=== PATIENT | female | born 1950 | race Caucasian/White ===

== ENCOUNTER 2017-06-02 14:50 | Emergency (ER) | payer BC ==
[2017-06-02 15:20] VITALS: BP 135/70
--- NOTE | 2017-06-02 16:05 | EDM.PDOC ---
ED HPI GENERAL MEDICAL PROBLEM - General Chief Complaint: General Stated Complaint: FALL MULTIPLE INJURIES Time Seen by Provider: 06/02/17 15:24 Source of Information: Reports: Patient History Limitations: Reports: No Limitations - History of Present Illness INITIAL COMMENTS - FREE TEXT/NARRATIVE: The patient is a 66-year-old female with a chief complaint of right shoulder and bilateral knee pain after a fall. The patient was at [facility]. She slipped on something while she was holding onto the cart and fell to the ground. She fell onto her left knee. Her right knee twisted. She also injured her shoulder. She was able to get up. She is able to bear weight but with significant pain. She has pain in her right neck area, right shoulder, and bilateral knees. Denies head injury. No loss of consciousness. No back pain, chest pain, or abdominal pain. Unable to take pain medication due to many allergies. Knee Pain Score (Numeric/FACES): 4 - Related Data Allergies Allergy/AdvReac Type Severity Reaction Status Date / Time acetaminophen [From Percocet] Allergy Hives Verified 06/02/17 15:25 adhesive Allergy Hives Verified 06/02/17 15:25 aspirin Allergy Blurred Verified 06/02/17 15:25 Vision azithromycin [From Zithromax] Allergy Hives Verified 06/02/17 15:25 cayenne Allergy Hives Verified 06/02/17 15:25 cefazolin Allergy Hives Verified 06/02/17 15:25 chlorhexidine Allergy Hives Verified 06/02/17 15:25 [place] And Derivatives Allergy Hives Verified 06/02/17 15:25 dibucaine Allergy Hives Verified 06/02/17 15:25 erythromycin base Allergy Hives Verified 06/02/17 15:25 esomeprazole [From Nexium] Allergy Hives Verified 06/02/17 15:25 hydrocodone Allergy Itching Verified 06/02/17 15:25 Influenza Virus Vaccines Allergy Anaphylactic Verified 06/02/17 15:25 Shock levofloxacin [From Levaquin] Allergy Blurred Verified 06/02/17 15:25 Vision lorazepam [From Ativan] Allergy Hives Verified 06/02/17 15:25 NSAIDS (Non-Steroidal Allergy Hives Verified 06/02/17 15:25 Anti-Inflamma omeprazole Allergy Hives Verified 06/02/17 15:25 oxycodone [From Percocet] Allergy Hives Verified 06/02/17 15:25 pantoprazole [From Protonix] Allergy Hives Verified 06/02/17 15:25 Penicillins Allergy Hives Verified 06/02/17 15:25 ranitidine [From Zantac] Allergy Hives Verified 06/02/17 15:25 Sulfa (Sulfonamide Allergy Hives Verified 06/02/17 15:25 Antibiotics) Tetanus Vaccines and Toxoid Allergy Anaphylactic Verified 06/02/17 15:25 Shock Home Meds: Home Meds . [No Known Home Meds] 06/02/17 [History] Past Medical History - Past Surgical History Female Surgical History: Reports: Hysterectomy Musculoskeletal Surgical History: Reports: Hip Replacement, Shoulder Surgery, Other (See Below) Other Musculoskeletal Surgeries/Procedures:: torn meniscus both knees Social & Family History - Tobacco Use Smoking Status *Q: Never Smoker - Caffeine Use Caffeine Use: Reports: None - Recreational Drug Use Recreational Drug Use: No ED ROS GENERAL - Review of Systems Review Of Systems: See Below Constitutional: Reports: No Symptoms Cardiovascular: Denies: Chest Pain GI/Abdominal: Denies: Abdominal Pain Musculoskeletal: Reports: Neck Pain, Shoulder Pain, Leg Pain Neurological: Denies: Tingling ED EXAM, GENERAL - Physical Exam Exam: See Below Exam Limited By: No Limitations General Appearance: Alert, WD/WN, No Apparent Distress Eye Exam: Bilateral Eye: Normal Inspection Ears: Normal External Exam Nose: Normal Inspection Throat/Mouth: Normal Inspection, Normal Oropharynx Head: Atraumatic, Normocephalic Neck: Normal Inspection, Supple, Full Range of Motion, Other (R lateral trapezius area TTP). No: Tender Midline Respiratory/Chest: No Respiratory Distress, Lungs Clear, Normal Breath Sounds, Chest Non-Tender Cardiovascular: Normal Peripheral Pulses GI/Abdominal: Soft, Non-Tender, No Distention. No: Rebound Back Exam: Normal Inspection, Full Range of Motion. No: Vertebral Tenderness Extremities: Other (R shoulder: no deformity, skin intact, + mild TTP of posterior shoulder area, no humerus/elbow TTP, distal motor/sensation/perfusion intact. R knee: no deformity or bruising, skin intact, no effusion, +lateral joint line area TTP, limited ROM due to pain. L knee: small amount anterior bruising, diffuse anterior TTP, skin intact, no effusion, limited ROM due to pain, R and L extremity exams otherwise normal, no hip or ankle TTP) Neurological: Alert, Oriented, Normal Cognition, No Motor/Sensory Deficits Psychiatric: Normal Affect, Normal Mood Skin Exam: Warm, Dry, Intact, Normal Color, No Rash Course - Vital Signs Last Recorded V/S: Last Vital Signs Temp 36.9 C 06/02/17 15:16 Pulse 81 06/02/17 15:16 Resp 16 06/02/17 15:16 BP 135/70 06/02/17 15:16 Pulse Ox 97 06/02/17 15:16 - Orders/Labs/Meds Orders: Active Orders 24 hr Category Date Time Status Knee Min 4V Lt [CR] Stat Exams 06/02/17 15:59 Taken Knee Min 4V Rt [CR] Stat Exams 06/02/17 15:59 Taken Shoulder Comp Rt [CR] Stat Exams 06/02/17 15:59 Taken - Re-Assessments/Exams Free Text/Narrative Re-Assessment/Exam: 06/02/17 16:51 X-rays of the right shoulder and bilateral knees show no bony abnormality. Her shoulder discomfort is consistent with a trapezius strain. Her right knee may also be sprained or may also have internal injury. Her left knee is contused but not fractured. She does not tolerate any pain medications due to extensive allergies. Advised her to treat with ice, rest, elevation, primary care or orthopedics follow-up as needed. Departure - Departure Time of Disposition: 16:52 Disposition: Home, Self-Care 01 Clinical Impression: Fall Qualifiers: Encounter type: initial encounter Qualified Code(s): W19.XXXA - Unspecified fall, initial encounter Trapezius strain Qualifiers: Encounter type: initial encounter Laterality: right Qualified Code(s): S46.811A - Strain of other muscles, fascia and tendons at shoulder and upper arm level, right arm, initial encounter Right knee sprain Qualifiers: Encounter type: initial encounter Involved ligament of knee: unspecified ligament Qualified Code(s): S83.91XA - Sprain of unspecified site of right knee , initial encounter Contusion of left knee Qualifiers: Encounter type: initial encounter Qualified Code(s): S80.02XA - Contusion of left knee, initial encounter - Discharge Information Referrals: PCP,None [Primary Care Provider] - Forms: ED Department Discharge Additional Instructions: 1. Ice areas of pain today and tomorrow 2. Follow up with a primary care doctor or orthopedist in approximately 1 week if not improved - My Orders Last 24 Hours: My Active Orders 06/02/17 15:59 Knee Min 4V Lt [CR] Stat Knee Min 4V Rt [CR] Stat Shoulder Comp Rt [CR] Stat - Assessment/Plan Last 24 Hours: My Active Orders 06/02/17 15:59 Knee Min 4V Lt [CR] Stat Knee Min 4V Rt [CR] Stat Shoulder Comp Rt [CR] Stat
--- NOTE | 2017-06-03 08:10 | CR ---
Left knee: Four views of the left knee were obtained as well as bilateral sunrise patellar view. Comparison: No prior Moderate to severe medial joint space narrowing is seen. Lateral joint space is preserved. Slight osteophytes noted off the medial and lateral joint. There is mild cartilage loss within both patellofemoral joints. Osteophytes are seen within both patellofemoral joints which are worse on the left side. Impression: 1. Degenerative change as described above. 2. Nothing acute is appreciated on left knee exam. Diagnostic code #2
--- NOTE | 2017-06-03 08:10 | CR ---
Right knee: Four views of the right knee were obtained. Comparison: No previous radiographic exam. Moderate to severe medial joint space narrowing is seen. Small osteophytes are noted off the medial joint. Lateral joint space is maintained. Minimal osteophytes are seen off the patella. Mild joint space narrowing is noted within the right patella. No acute fracture or other abnormality is identified. Impression: 1. Degenerative change as noted above. 2. No acute bony abnormality is identified. Diagnostic code #2
--- NOTE | 2017-06-03 08:10 | CR ---
Right shoulder: Three views of the right shoulder were obtained. Comparison: No prior right shoulder study. Degenerative spurring is seen off the inferior humeral head. Mild spurring is noted about the glenoid. Previous shoulder surgery is seen. Surgical anchor is noted within the humeral head as well as slight distal clavicle resection. No acute fracture or other abnormality is appreciated. Impression: 1. Degenerative change within the glenohumeral joint. Previous right shoulder surgery. 2. Nothing acute is appreciated on right shoulder study. Diagnostic code #2
== END 2017-06-02 17:10 | disposition home or self-care (01) ==
LOC: JD.ED 14:50
DX: S46.811A Strain of other muscles, fascia and tendons at shoulder and upper arm level, right arm, initial encounter (principal); S83.91XA Sprain of unspecified site of right knee, initial encounter; S80.02XA Contusion of left knee, initial encounter; Z88.6 Allergy status to analgesic agent; Z88.1 Allergy status to other antibiotic agents; Z88.5 Allergy status to narcotic agent; Z88.8 Allergy status to other drugs, medicaments and biological substances; Z88.2 Allergy status to sulfonamides; W19.XXXA Unspecified fall, initial encounter
CPT/HCPCS: 73030-26-RT; 73030-RT; 73564-26-LT; 73564-26-RT; 73564-LT; 73564-RT; 99284

== ENCOUNTER 2019-07-11 22:11 | Emergency (ER) | payer BC ==
[2019-07-11 22:21] VITALS: BP 176/90; PULSE 78
--- NOTE | 2019-07-11 22:51 | EDM.PDOC ---
ED HPI GENERAL MEDICAL PROBLEM - General Chief Complaint: Head Injury Stated Complaint: FELL AND GASHED NOSE/LIP/TONGUE Time Seen by Provider: 07/11/19 22:24 Source of Information: Reports: Patient, Significant Other (Boyfriend) History Limitations: Reports: No Limitations - History of Present Illness INITIAL COMMENTS - FREE TEXT/NARRATIVE: Ms. Garrett is a pleasant 68-year-old woman with no chronic medical issues, who states that she got out of her boyfriend's pickup, then tripped and fell onto her concrete driveway, striking her face, around 21:50 this evening. She denies LOC. She presents to the ED with abrasions to her nose, swelling of her lower lip, and pain, swelling, and ecchymosis to her left thumb. She is complaining of pain to her chin, but denies any dental injury. She denies pain elsewhere, including to her knees or wrists. The patient smells of alcohol. She states that she had 4 beers tonight. The patient is not on aspirin or an anticoagulant, but she does take fish oil, for reasons she does not know. The patient does not have a PCP. She has not received an influenza vaccine this season, but agreed to receive one tonight. Head Pain Score (Numeric/FACES): 7 - Related Data Allergies Allergy/AdvReac Type Severity Reaction Status Date / Time acetaminophen [From Percocet] Allergy Hives Verified 07/11/19 22:25 adhesive Allergy Hives Verified 07/11/19 22:25 aspirin Allergy Blurred Verified 07/11/19 22:25 Vision azithromycin [From Zithromax] Allergy Hives Verified 07/11/19 22:25 cayenne Allergy Hives Verified 07/11/19 22:25 cefazolin Allergy Hives Verified 07/11/19 22:25 chlorhexidine Allergy Hives Verified 07/11/19 22:25 [place] And Derivatives Allergy Hives Verified 07/11/19 22:25 dibucaine Allergy Hives Verified 07/11/19 22:25 erythromycin base Allergy Hives Verified 07/11/19 22:25 esomeprazole [From Nexium] Allergy Hives Verified 07/11/19 22:25 hydrocodone Allergy Itching Verified 07/11/19 22:25 Influenza Virus Vaccines Allergy Anaphylactic Verified 07/11/19 22:25 Shock levofloxacin [From Levaquin] Allergy Blurred Verified 07/11/19 22:25 Vision lorazepam [From Ativan] Allergy Hives Verified 07/11/19 22:25 NSAIDS (Non-Steroidal Allergy Hives Verified 07/11/19 22:25 Anti-Inflamma omeprazole Allergy Hives Verified 07/11/19 22:25 oxycodone [From Percocet] Allergy Hives Verified 07/11/19 22:25 pantoprazole [From Protonix] Allergy Hives Verified 07/11/19 22:25 Penicillins Allergy Hives Verified 07/11/19 22:25 ranitidine [From Zantac] Allergy Hives Verified 07/11/19 22:25 Sulfa (Sulfonamide Allergy Hives Verified 07/11/19 22:25 Antibiotics) Tetanus Vaccines and Toxoid Allergy Anaphylactic Verified 07/11/19 22:25 Shock Home Meds: Home Meds . [No Known Home Meds] 06/02/17 [History] Past Medical History HEENT History: Reports: Impaired Vision Cardiovascular History: Reports: Hypertension (untreated) [employer]ARD [employer]ATOR History: Reports: Spontaneous Musculoskeletal History: Reports: Other (See Below) (Bilateral knee torn meniscus - no operative repair) Endocrine/Metabolic History: Reports: Obesity/BMI 30+ - Past Surgical History Female Surgical History: Reports: D&C (x 1), Hysterectomy (complete) Musculoskeletal Surgical History: Reports: Hip Replacement (right), Knee Replacement (right), Shoulder Surgery (right, open) Social & Family History - Tobacco Use Smoking Status *Q: Former Smoker Years of Tobacco use: 42 Packs/Tins Daily: 2.5 Month/Year Tobacco Last Used: Quit 2008 - Caffeine Use Caffeine Use: Reports: None - Alcohol Use Alcohol Use History: Yes Alcohol Use Frequency: Socially - Recreational Drug Use Recreational Drug Use: No - Living Situation & Occupation Living situation: Reports: , with Significant Other (Boyfriend) Occupation: Retired ED ROS GENERAL - Review of Systems Review Of Systems: Unable To Obtain ED EXAM, HEAD INJURY - Physical Exam Exam: See Below Exam Limited By: No Limitations General Appearance: Alert, WD/WN, No Apparent Distress Head: Normocephalic, Facial Tenderness (Tenderness to the anterior mandible. The patient denies dental pain or malocclusion when asked to bite down.) Eyes: Bilateral Eye: EOMI, Normal Inspection, PERRL Ears: Normal External Exam, Normal Canal, Hearing Grossly Normal, Normal TMs Nose: Normal Mucousa, Other (There is an abrasion across the middle of the bridge of her nose, as well as to the tip of her nose. No bony tenderness to palpation of the bridge of the nose. No epistaxis either side, and no septal hematoma found.) Throat/Mouth: Normal Teeth, Normal Gums, Normal Oropharynx, Normal Voice, No Airway Compromise, Other (The lower lip is swollen. There is ecchymosis to the inside of the lower lip, but no laceration or blood was found.) Neck: Non-Tender, Full Range of Motion, Normal Alignment, Normal Inspection Respiratory: No Respiratory Distress, Lungs Clear, Normal Breath Sounds, No Accessory Muscle Use Cardiovascular: Normal Peripheral Pulses, Regular Rate, Rhythm, No Edema, No Gallop, No JVD, No Murmur, No Rub GI/Abdominal Exam: Normal Bowel Sounds, Soft, Non-Tender, No Organomegaly, No Distention, No Abnormal Bruit, No Mass (Female) Exam: Deferred Rectal (Female) Exam: Deferred Back Exam: Full Range of Motion, Normal Inspection, NT Extremities: Normal Capillary Refill, Other (There is swelling, ecchymosis, and tenderness to palpation of the proximal phalanx of her left thumb, however, pain is not induced in the thumb with compression, traction, or torsion of the thumb. Neurovascular status of the left thumb is intact.) Neurologic: No Motor/Sensory Deficits, Alert, Oriented x 3 Skin: Normal Color, Warm/Dry Course - Vital Signs Last Recorded V/S: Last Vital Signs Temp 35.9 C 07/11/19 22:17 Pulse 78 07/11/19 22:17 Resp 18 07/11/19 22:17 BP 176/90 H 07/11/19 22:17 Pulse Ox 94 L 07/11/19 22:17 - Orders/Labs/Meds Orders: Active Orders 24 hr Category Date Time Status Influenza Vaccine Charge [RC] .DISCHARGE Care 07/11/19 22:45 Active Fingers Thumb Lt FA [CR] Stat Exams 07/11/19 22:44 Taken Maxillofacial w/o CM [Max Facial Sinus wo Cont] [CT] Exams 07/11/19 22:43 Taken Stat Meds: Medications Discontinued Medications Generic Name Dose Route Start Last Admin Trade Name Robert PRN Reason Stop Dose Admin Influenza Virus Vaccine 1 each 07/11/19 22:45 Pharmacy To Dose - Influenza Vaccine IM 07/11/19 22:46 ONETIME ONE Influenza Virus Vaccine 180 mcg 07/11/19 23:00 07/12/19 00:11 Fluzone High-Dose 2019-20 Syringe IM 07/11/19 23:01 Not Given .ONCE ONE - Re-Assessments/Exams Free Text/Narrative Re-Assessment/Exam: 07/11/19 22:45 The patient has two abrasions to her nose, but there is no nasal bone tenderness , so my suspicion of a fracture there is low. Similarly, while the patient's left thumb proximal phalanx is swollen and ecchymotic, there does not appear to be any bony tenderness, nor pain induced with compression, traction, or torsion of the thumb, so my suspicion of a fracture there is low, as well, however, I have ordered x-rays of the thumb to be sure. I am more concerned about the patient's mandible. She has bony tenderness to palpation, therefore I have ordered a CT maxillofacial to evaluate for fracture. This will also rule out a fracture to her nose. The patient declined an offer for pain medication. 07/11/19 23:52 3-view radiographs of the left thumb appear to demonstrate significant arthritic changes to the IP joint, but no fracture or dislocation is identified. Formal read per the Radiologist pending. CT maxillofacial without contrast is read by Emerson as "No acute findings." 07/11/19 23:58 X-ray and CT results discussed with the patient and her boyfriend. I'm recommending that she take [id number] ibuprofen as needed for discomfort, and apply an ice pack as much as possible to her nose, lip, and left thumb, for 2 days, to help minimize swelling. 07/12/19 00:15 Notified by Aby MORSE that the patient refused the influenza vaccine. Departure - Departure Time of Disposition: 23:59 Disposition: Home, Self-Care 01 Condition: Good Clinical Impression: Facial abrasion, Contusion of left thumb - Discharge Information *PRESCRIPTION DRUG MONITORING PROGRAM REVIEWED*: Not Applicable *COPY OF PRESCRIPTION DRUG MONITORING REPORT IN PATIENT HANNAH: Not Applicable Instructions: Contusion, Abrasion, [id number] Referrals: PCP,None [Primary Care Provider] - Forms: ED Department Discharge Additional Instructions: You were seen in the emergency room after tripping and falling, striking your face and left thumb on concrete. Workup in the ER included a CT maxillofacial without contrast and x-rays of your left thumb. No broken bones were found. We recommend that you keep the abrasions to your nose clean with ordinary soap and water when you bathe. If you like, you may apply a thin smear of bacitracin to the abrasions and, if you like, cover with a clean bandage, daily. We recommend that you do not apply makeup until the abrasions have healed completely. We recommend that you apply an ice pack as much as possible to your face and left thumb, for 2 days, to help minimize swelling. We recommend that you take [id number] ibuprofen as needed for discomfort. If any other problems, please do not hesitate to return to the ER. - My Orders Last 24 Hours: My Active Orders 07/11/19 22:43 Maxillofacial w/o CM [Max Facial Sinus wo Cont] [CT] Stat 07/11/19 22:44 Fingers Thumb Lt FA [CR] Stat 07/11/19 22:45 Influenza Vaccine Charge [RC] .DISCHARGE - Assessment/Plan Last 24 Hours: My Active Orders 07/11/19 22:43 Maxillofacial w/o CM [Max Facial Sinus wo Cont] [CT] Stat 07/11/19 22:44 Fingers Thumb Lt FA [CR] Stat 07/11/19 22:45 Influenza Vaccine Charge [RC] .DISCHARGE
--- NOTE | 2019-07-12 13:42 | CT ---
CT facial bones Technique: Multiple axial sections through the facial bones were obtained. Reconstructed coronal and sagittal images were obtained. Comparison: No previous study. Findings: Mild mucosal thickening is seen within the maxillary and ethmoid sinuses. Right and left globes are symmetric. Mastoid sinuses are clear. Mild degenerative change is noted within the right temporomandibular joint. No acute facial bone fracture is appreciated. Impression: 1. Findings as noted above. 2. Nothing acute is appreciated. Diagnostic code #2 I agree with preliminary report from [facility], finalized on 07/12/19, 12:49 AM Central Time
--- NOTE | 2019-07-12 13:56 | CR ---
Left thumb: Three views of the left thumb were obtained. Comparison: No prior thumb or hand study is available. Joint space narrowing and osteophytes are seen within the IP joint of the thumb. Mild joint space narrowing is also noted within the MCP joint. Soft tissue swelling is present. No acute fracture or dislocation is seen. Impression: 1. Degenerative change. 2. Soft tissue swelling. 3. No acute bony abnormality is appreciated. Diagnostic code #2
== END 2019-07-12 00:10 | disposition home or self-care (01) ==
LOC: JD.ED 22:11
DX: S60.012A Contusion of left thumb without damage to nail, initial encounter (principal); S00.531A Contusion of lip, initial encounter; S00.31XA Abrasion of nose, initial encounter; I10 Essential (primary) hypertension; E66.9 Obesity, unspecified; Z68.30 Body mass index [BMI] 30.0-30.9, adult; Z88.6 Allergy status to analgesic agent; Z88.4 Allergy status to anesthetic agent; Z88.1 Allergy status to other antibiotic agents; Z88.5 Allergy status to narcotic agent; Z88.0 Allergy status to penicillin; Z88.2 Allergy status to sulfonamides; Z88.7 Allergy status to serum and vaccine; Z88.8 Allergy status to other drugs, medicaments and biological substances; Z91.048 Other nonmedicinal substance allergy status; Z87.891 Personal history of nicotine dependence; W01.198A Fall on same level from slipping, tripping and stumbling with subsequent striking against other object, initial encounter; Y93.89 Activity, other specified; Y92.89 Other specified places as the place of occurrence of the external cause
CPT/HCPCS: 70486; 70486-26; 73140-26-FA; 73140-FA; 90471; 99282; 99283-25

== ENCOUNTER 2021-01-07 20:38 | Emergency (ER) | payer BC ==
[2021-01-07 20:57] VITALS: BP 162/63; PULSE 95
[2021-01-07] MEDS ORDERED: Magnesium Citrate Solution 296 ML Bottle PO ONE (21:23)
[2021-01-07] MEDS ORDERED: diphenhydrAMINE 50 MG/ML SDV IVPUSH ONE (21:30)
[2021-01-07] MEDS ORDERED: HYDROmorphone 1 MG/ML Syringe IM ONE (21:30)
[2021-01-07] MEDS ORDERED: Lidocaine 2% Jelly 10 ML Urojet MUCMEM ONE (21:30)
[2021-01-07] MEDS ORDERED: diphenhydrAMINE 50 MG/ML SDV IM ONE (21:30)
[2021-01-07] MEDS ORDERED: Ondansetron 4 MG Tab.DIS PO ONE (21:33)
--- NOTE | 2021-01-07 21:37 | EDM.PDOC ---
ED HPI GENERAL MEDICAL PROBLEM - General Chief Complaint: Abdominal Pain Stated Complaint: EXTREME CONSTIPATION Time Seen by Provider: 01/07/21 21:23 Source of Information: Reports: Patient, RN Notes Reviewed, Significant Other History Limitations: Reports: No Limitations - History of Present Illness INITIAL COMMENTS - FREE TEXT/NARRATIVE: Patient is a 70-year-old female who presents to the ER for the evaluation of her extreme constipation. Patient had hip surgery, total replacement done by [facility] [place] this last Saturday. Patient notes she was placed on Endocet 10/325 mg for pain management she has been using this for pain, and has been using [id number] stool softeners without relief, also tried some MiraLAX tonight. Patient notes that she vomited once after that. She is complaining of some increased swelling to her leg, and pain behind her left knee that goes into her calf. There is some bruising on the lateral portion of her left leg, and redness/bruising to the medial portion of her left leg, the significant other in the room does note that this does not seem to be spreading. She is not had a fever, she has no cough or shortness of breath, she has had no diarrhea. Patient notes that she has not had a good bowel movement, from what she thinks is around Saturday. Lower Abdomen Pain Score (Numeric/FACES): 6 - Related Data Allergies Allergy/AdvReac Type Severity Reaction Status Date / Time chlorhexidine Allergy Severe Hives Verified 01/07/21 21:22 [place] And Derivatives Allergy Severe Hives Verified 01/07/21 21:22 dibucaine Allergy Severe Hives Verified 01/07/21 21:22 erythromycin base Allergy Severe Hives Verified 01/07/21 21:22 esomeprazole [From Nexium] Allergy Severe Hives Verified 01/07/21 21:22 hydrocodone Allergy Severe Itching Verified 01/07/21 21:22 Influenza Virus Vaccines Allergy Severe Anaphylactic Verified 01/07/21 21:22 Shock levofloxacin [From Levaquin] Allergy Severe Blurred Verified 01/07/21 21:22 Vision lorazepam [From Ativan] Allergy Severe Hives Verified 01/07/21 21:22 NSAIDS (Non-Steroidal Allergy Severe Hives Verified 01/07/21 21:22 Anti-Inflamma omeprazole Allergy Severe Hives Verified 05/01/21 21:22 oxycodone [From Percocet] Allergy Severe Hives Verified 01/07/21 21:22 pantoprazole [From Protonix] Allergy Severe Hives Verified 01/07/21 21:22 Penicillins Allergy Severe Hives Verified 01/07/21 21:22 ranitidine [From Zantac] Allergy Severe Hives Verified 01/07/21 21:22 Sulfa (Sulfonamide Allergy Severe Hives Verified 01/07/21 21:22 Antibiotics) Tetanus Vaccines and Toxoid Allergy Severe Anaphylactic Verified 01/07/21 21:22 Shock acetaminophen [From Percocet] Allergy Hives Verified 01/07/21 21:04 adhesive Allergy Hives Verified 01/07/21 21:04 aspirin Allergy Blurred Verified 01/07/21 21:04 Vision azithromycin [From Zithromax] Allergy Hives Verified 01/07/21 21:04 [place] Allergy Hives Verified 01/07/21 21:04 cefazolin Allergy Hives Verified 01/07/21 21:04 Home Meds: Home Meds Apixaban [Eliquis] 2.5 mg PO DAILY 01/07/21 [History] oxyCODONE HCl/Acetaminophen [Endocet 10-325 mg Tablet] 1 tab PO DAILY 01/07/21 [History] Past Medical History HEENT History: Reports: Impaired Vision Cardiovascular History: Reports: Hypertension (untreated) Respiratory History: Reports: None Gastrointestinal History: Reports: None [employer] History: Reports: Spontaneous Musculoskeletal History: Reports: Other (See Below) Neurological History: Reports: Concussion Psychiatric History: Reports: None Endocrine/Metabolic History: Reports: Obesity/BMI 30+ Hematologic History: Reports: None Immunologic History: Reports: None Oncologic (Cancer) History: Reports: None Dermatologic History: Reports: None - Infectious Disease History Infectious Disease History: Reports: None - Past Surgical History Head Surgeries/Procedures: Reports: None Female Surgical History: Reports: D&C, Hysterectomy Musculoskeletal Surgical History: Reports: Hip Replacement, Knee Replacement, Shoulder Surgery Other Musculoskeletal Surgeries/Procedures:: torn meniscus both knees Social & Family History - Tobacco Use Tobacco Use Status *Q: Never Tobacco User Second Hand Smoke Exposure: No - Caffeine Use Caffeine Use: Reports: None - Recreational Drug Use Recreational Drug Use: No - Living Situation & Occupation Living situation: Reports: , with Significant Other (Boyfriend) Occupation: Retired ED [employer] - Review of Systems Review Of Systems: Comprehensive ROS is negative, except as noted in HPI. ED EXAM, GI/ABD - Physical Exam Exam: See Below Exam Limited By: No Limitations General Appearance: Alert, WD/WN, No Apparent Distress Respiratory/Chest: No Respiratory Distress, Lungs Clear, Normal Breath Sounds, No Accessory Muscle Use, Chest Non-Tender Cardiovascular: Normal Peripheral Pulses, Regular Rate, Rhythm, No Edema GI/Abdominal Exam: Soft, Distended (generalized minimally), Tender (generalized) Extremities: Normal Range of Motion, Normal Capillary Refill Neurological: Alert, Oriented, Normal Cognition, No Motor/Sensory Deficits Psychiatric: Normal Affect, Normal Mood Skin Exam: Warm, Dry, Intact, No Rash, Ecchymosis (post surgical ecchymosis to left leg; seems to be healing as appropriate) Course - Vital Signs Last Recorded V/S: Last Vital Signs Temp 97 F 01/07/21 20:48 Pulse 95 01/07/21 20:48 Resp BP 162/63 H 01/07/21 20:48 Pulse Ox - Orders/Labs/Meds Orders: Active Orders 24 hr Category Date Time Status Enema [RC] ASDIRECTED Care 01/07/21 21:23 Ordered Meds: Medications Discontinued Medications Generic Name Dose Route Start Last Admin Trade Name Robert PRN Reason Stop Dose Admin Diphenhydramine HCl 25 mg 01/07/21 21:30 Diphenhydramine 50 Mg/Ml Sdv IVPUSH 01/07/21 21:31 ONETIME ONE Diphenhydramine HCl 25 mg 01/07/21 21:30 01/07/21 21:40 Diphenhydramine 50 Mg/Ml Sdv IM 01/07/21 21:31 25 mg ONETIME ONE Administration Hydromorphone HCl 1 mg 01/07/21 21:30 01/07/21 21:39 Hydromorphone 1 Mg/Ml Syringe IM 01/07/21 21:31 1 mg ONETIME ONE Administration Lidocaine HCl 10 ml 01/07/21 21:30 01/07/21 21:41 Lidocaine 2% Jelly 10 Ml Urojet MUCMEM 01/07/21 21:31 10 ml ONETIME ONE Administration Magnesium Citrate 296 ml 01/07/21 21:23 Magnesium Citrate Solution 296 Ml Bottle PO 01/07/21 21:24 ONETIME ONE Ondansetron HCl 4 mg 01/07/21 21:33 01/07/21 21:45 Ondansetron 4 Mg Tab.Dis PO 01/07/21 21:34 4 mg ONETIME ONE Administration - Re-Assessments/Exams Free Text/Narrative Re-Assessment/Exam: 01/07/21 21:36 Patient presents to the ER for her extreme constipation and pain all over. Highly believe a lot of this is due to the patient's constipation, will get a Urojet instilled into her rectum to hopefully provide a bowel movement, we will try a soapsuds enema, magnesium citrate, get her something for pain management. Patient notes that she does get some hives when she was given Dilaudid in the hospital for her hip however she did do well when she was given Benadryl with the Dilaudid. We will also give her some Zofran for nausea management. 01/07/21 22:24 Patient did have good results and provided us with a large bowel movement, states she feels much better and is wanting to go home, this is fine with me. Departure - Departure Time of Disposition: 22:15 Disposition: Home, Self-Care 01 Condition: Good Clinical Impression: Constipation Qualifiers: Constipation type: drug induced constipation Qualified Code(s): K59.03 - Drug induced constipation - Discharge Information *PRESCRIPTION DRUG MONITORING PROGRAM REVIEWED*: No *COPY OF PRESCRIPTION DRUG MONITORING REPORT IN PATIENT HANNAH: No Instructions: Constipation, Adult, [id number] Referrals: Mikaela Bangura MD [Primary Care Provider] - Forms: ED Department Discharge Additional Instructions: You were evaluated in the ER today for your constipation. You were given an enema in the ER today, this did help provide a pretty large bowel movement in the ER. You were given a bottle of magnesium citrate to provide further relief for bowel movements, you may use one quarter bottle at a time, wait a few hours if you do not have a rather large bowel movement, continue with the next quarter bottle. Please continue to use stool softeners at home daily, to provide further softening of her stools, increase the fiber intake in her food, to help also facilitate bowel movements. You will need to continue taking the pain medication as previously prescribed from your regular doctor for your recent hip surgery. Please increase your oral fluid intake as well, as this will help to keep you hydrated, and should promote good bowel health. If you do not feel hungry, I recommend that you eat several small meals throughout the day, rather than a few large meals. Please return to the ER at any time if symptoms change or worsen. Sepsis Event Note (ED) - Evaluation Sepsis Screening Result: No Definite Risk - Focused Exam Vital Signs: Vital Signs Temp Pulse BP 01/07/21 20:48 97 F 95 162/63 H - My Orders Last 24 Hours: My Active Orders 01/07/21 21:23 Enema [RC] ASDIRECTED - Assessment/Plan Last 24 Hours: My Active Orders 01/07/21 21:23 Enema [RC] ASDIRECTED
== END 2021-01-07 22:40 | disposition home or self-care (01) ==
LOC: JD.ED 20:38
DX: K59.03 Drug induced constipation (principal); T42.8X5A Adverse effect of antiparkinsonism drugs and other central muscle-tone depressants, initial encounter; E66.9 Obesity, unspecified; I10 Essential (primary) hypertension; Z88.5 Allergy status to narcotic agent; Z88.0 Allergy status to penicillin; Z88.1 Allergy status to other antibiotic agents; Z88.7 Allergy status to serum and vaccine; Z88.8 Allergy status to other drugs, medicaments and biological substances; Z88.2 Allergy status to sulfonamides; Z91.018 Allergy to other foods; Z88.6 Allergy status to analgesic agent; Z68.39 Body mass index [BMI] 39.0-39.9, adult
CPT/HCPCS: 96372; 99283; A9270; J1170; J1200

== ENCOUNTER 2022-06-05 18:25 | Emergency (ER) | payer BC, SELFPAY ==
[2022-06-05 18:59] VITALS: BP 188/81; PULSE 82
[2022-06-05] MEDS ORDERED: Morphine 4 MG/ML Syringe IVPUSH ONE (19:18)
[2022-06-05] MEDS ORDERED: diphenhydrAMINE 50 MG/ML SDV IVPUSH ONE (19:18)
[2022-06-05] MEDS ORDERED: Sodium Chloride 0.9% 500 ML IV ONE (20:12)
== END 2022-06-05 22:12 | disposition home or self-care (01) ==
LOC: JD.ED 18:25
DX: K43.9 Ventral hernia without obstruction or gangrene (principal); I10 Essential (primary) hypertension; E66.9 Obesity, unspecified; Z68.34 Body mass index [BMI] 34.0-34.9, adult; Z90.710 Acquired absence of both cervix and uterus; Z88.7 Allergy status to serum and vaccine; Z88.8 Allergy status to other drugs, medicaments and biological substances; Z88.1 Allergy status to other antibiotic agents; Z88.6 Allergy status to analgesic agent; Z88.5 Allergy status to narcotic agent; Z88.0 Allergy status to penicillin; Z88.2 Allergy status to sulfonamides
CPT/HCPCS: 36415; 74177; 74177-26; 80053; 83605; 83690; 84484; 85025; 85610; 96361; 96374; 96375; 99284; 99284-25; J1200; J2270; J7030